=== PATIENT | female | born 1960 | race Caucasian/White ===

== ENCOUNTER 2021-07-13 08:06 | Outpatient (CLI) | payer BC, SELFPAY ==
--- NOTE | ~2021-07-13 | MM_ITS ---
EXAMINATION: [facility] HISTORY: Screening mammogram TECHNIQUE: Craniocaudal and mediolateral oblique 3-D tomosynthesis images were obtained and synthetic 2-D images were generated. CAD analysis was submitted and interpreted. COMPARISON: 01/28/2012, 01/11/2012, 12/29/2011 BREAST PARENCHYMAL COMPOSITION: There are scattered areas of fibroglandular density. FINDINGS: There is no evidence of suspicious mass, calcification, or architectural distortion to sugg est malignancy in either breast. There has been no suspicious interval change. IMPRESSION: 1. No mammographic evidence of malignancy. 2. Recommend routine screening mammography in one year. BI-RADS Category 1: Negative Reviewed, dictated and finalized at location A.
== END 2021-07-13 08:07 | disposition home or self-care (01) ==
LOC: ANHIMG 08:08
PROVIDERS: Visit Provider Nurse Practitioner Family
DX: Z12.31 Encounter for screening mammogram for malignant neoplasm of breast (principal)
CPT/HCPCS: 77063; 77067

== ENCOUNTER 2021-07-20 06:35 | Outpatient (CLI) | payer BC, SELFPAY ==
--- NOTE | ~2021-07-20 | CT_ITS ---
EXAMINATION: CT lung screening DATE: 07/20/2021 07:01 INDICATION: PERSONAL HX OF TOBACCO DEPENDENCE TECHNIQUE: Computed tomography (CT) of the chest was performed without intravenous contrast. Addition al 3D reconstructions utilizing coronal maximum intensity projection (MIP) were performed. Automated exposure control and iterative reconstruction technique were employed. The dose-length product was 64 .17 mGy-cm. COMPARISON: None FINDINGS: There are a few scattered <4 mm pulmonary nodules. No pneumonia, pulmonary edema or pleural effusion. Heart size is normal. No pericardial effusion. Atherosclerotic coronary artery calcification. Thorac ic aorta is normal in caliber. No pathologically enlarged thoracic lymphadenopathy. There are a few h epatic calcifications consistent with old granulomatous disease. Multiple scattered hypodense hepatic lesions with near simple fluid attenuation but several with ill-defined margins. Visualized upper ab domen is otherwise unremarkable. Moderate midthoracic spondylosis. IMPRESSION: 1. Lung-RADS category 2: Benign appearance or behavior. Continue annual screening with noncontrast lo w-dose chest CT in 12 months. 2. Multiple hypodense hepatic lesions measuring up to 1.5 cm, most likely hepatic cysts or hemangioma s although differential would include metastatic disease in the appropriate clinical setting. Recomme nd further evaluation with pre and postcontrast MRI or CT . Reviewed, dictated and finalized at location B. IMPRESSION: 1. Lung-RADS category 2: Benign appearance or behavior. Continue annual screeni ng with noncontrast low-dose chest CT in 12 months. 2. Multiple hypodense hepatic lesions measuring up to 1.5 cm, most likely hepat ic cysts or hemangiomas although differential would include metastatic disease in the appropriate clinical setting. Recommend further evaluation with pre and postcontrast MRI or CT .
== END 2021-07-20 06:36 | disposition home or self-care (01) ==
LOC: ANHIMG 06:38
PROVIDERS: PCP Nurse Practitioner Family; Visit Provider Nurse Practitioner Family
DX: Z12.2 Encounter for screening for malignant neoplasm of respiratory organs (principal); Z87.891 Personal history of nicotine dependence; R91.8 Other nonspecific abnormal finding of lung field
CPT/HCPCS: 71271

== ENCOUNTER → 2021-07-20 07:21 | Outpatient (CLI) | payer BC, SELFPAY ==
--- NOTE | ~2021-07-20 | XR_ITS ---
EXAMINATION: XR foot LT min 3V, XR foot RT min 3V DATE: 07/20/2021 08:45 INDICATION: Bilateral foot pain TECHNIQUE: 1. Dorsoplantar, oblique and lateral views of the left foot were obtained. 2. Dorsoplantar, oblique and lateral views of the right foot were obtained. COMPARISON: Left foot radiographs dated 10/31/2015 FINDINGS: Bone alignment is normal at the bilateral feet. Likely old healed fracture of the distal diaphysis of the right fifth metatarsal with a pair of fixation screws. No other fractures identified at either f oot. Relatively symmetric mild polyarticular osteoarthritis including at the first metatarsophalangea l joints and multiple tarsometatarsal and interphalangeal joints. No erosions to suggest inflammatory arthritis. Small left plantar calcaneal spur. Moderate amount of enthesopathic ossification at the s etting of insertion of the distal right Achilles tendon. Soft tissues are unremarkable. IMPRESSION: 1. 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 2. Screw fixation of a likely old healed distal diaphyseal fractures of the right fifth metatarsal. N o acute osseous abnormality at either foot. 3. Small and left plantar calcaneal spur and moderate amount of enthesopathic ossification of the dis ulises right Achilles tendon. Reviewed, dictated and finalized at location B. IMPRESSION: 1. 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 2. Screw fixation of a likely old healed distal diaphyseal fractures of the rig ht fifth metatarsal. No acute osseous abnormality at either foot. 3. Small and left plantar calcaneal spur and moderate amount of enthesopathic o ssification of the distal right Achilles tendon.
== END ==
PROVIDERS: PCP Nurse Practitioner Family; Visit Provider Podiatrist Foot & Ankle Surgery
DX: M19.071 Primary osteoarthritis, right ankle and foot (principal); M19.072 Primary osteoarthritis, left ankle and foot; M77.31 Calcaneal spur, right foot; M77.32 Calcaneal spur, left foot
CPT/HCPCS: 73630

== ENCOUNTER 2021-08-24 08:03 | Outpatient (CLI) | payer BC, SELFPAY ==
--- NOTE | ~2021-08-24 | DEXA_ITS ---
Bone Density Report Name: Jes Spivey Age: 61 Sex: Female Ethnicity: White Date of : 1960 Indication: postmenopausal; prior fracture; Referring Provider: Vania, Lisa Soler Study: Bone densitometry was performed. Exam Date: August 24, 2021 Accession number: [id number] Bone Density: Region BMD T-score Z-score Classification AP Spine (L1-L4) 0.839 -1.9 -0.5 Osteopenia Femoral Neck (Left) 0.557 -2.6 -1.3 Osteoporosis Total Hip (Left) 0.798 -1.2 -0.2 Osteopenia Total Hip Bilateral Avg 0.770 -1.4 -0.4 Osteopenia Femoral Neck (Right) 0.586 -2.4 -1.1 Osteopenia Total Hip (Right) 0.741 -1.6 -0.7 Osteopenia World Health Organization criteria for BMD impression classify patients as: Normal (T-score at or above -1.0), Osteopenia (T-score between -1.0 and -2.5), or Osteoporosis (T-score at or below -2.5). 10-year Fracture Risk: FRAX not reported because: Some T-score for Spine Total or Hip Total or Femoral Neck at or below -2.5 Clinical Information Provided by Patient: Has had a low trauma fracture Smokes Patient maximum height was 60.5 Menopause Age: 51 Drinks caffeinated beverages Onset of menses at age 16 Number of children 3 Impression: The patient has established osteoporosis, based on the Left Femoral Neck T-score and the existence of a prior fracture. The patient has risk factors, including: smoking, previous fracture. Discussion: HIGH RISK OF FRACTURE. BONE DENSITY IS UNDESIRABLY LOW AT ONE OR MORE SKELETAL SITES, CONSISTENT WITH POSTMENOPAUSAL OSTEOPOROSIS. This patient's lowest T-score, in a patient who has previously fractured, meets the World Health Organization's (WHO) criteria for severe osteoporosis. In untreated patients, the risk of osteoporotic fracture increases approximately two-fold for each 1.0 SD decrease in T-score. Low bone density is not the only risk factor for fracture; also consider factors such as patient's age, frailty or poor health, risk of falling, risk of injury, previous osteoporotic fracture, family history of osteoporosis, cigarette smoking, low body weight, etc. Not everyone with low bone mineral density has osteoporosis; osteomalacia and other metabolic bone disorders should also be considered. Patients who have osteoporosis should be evaluated for specific diseases and conditions (secondary causes) that may cause or contribute to bone loss. The [place] [employer] (AACE) and National Osteoporosis Foundation (NOF) recommend pharmacologic intervention for all postmenopausal women whose T-score is in this range. The patient should follow a healthful lifestyle (good nutrition with adequate calcium and vitamin D, and appropriate weight-bearing exercise). Follow-Up: Consider a repeat BMD and Vertebral Fracture Assessment (VFA) exam in 2 years or sooner
== END 2021-08-24 08:04 | disposition home or self-care (01) ==
LOC: ANHIMG 08:05
PROVIDERS: PCP Nurse Practitioner Family; Visit Provider Nurse Practitioner Family
DX: Z78.0 Asymptomatic menopausal state (principal); M85.88 Other specified disorders of bone density and structure, other site; M85.852 Other specified disorders of bone density and structure, left thigh; M85.851 Other specified disorders of bone density and structure, right thigh; M81.0 Age-related osteoporosis without current pathological fracture
CPT/HCPCS: 77080